=== PATIENT | male | born 1985 | race Caucasian/White ===

== ENCOUNTER 2018-03-03 20:49 | Emergency (ER) | payer OTHER ==
[~2018-03-03] VITALS: Ht 180.3 cm; Wt 151.8 kg
[~2018-03-03 20:49] MED LIST: AGM875 PO
[2018-03-03 21:07] VITALS: TEMP 36.8; Ht 180.3 cm; Wt 151.8 kg
--- NOTE | 2018-03-03 22:46 | DIAGNOSTIC IMAGING REPORT ---
L EXTREMITY NONVASCULAR LIMITED CLINICAL HISTORY: 32 years-old Male presenting with left calf pain/swelling, ? Muscle tear/DVT. TECHNIQUE: Real-time grayscale Doppler ultrasound imaging of the left medial calf was performed for a focused evaluation at the site of clinical concern. COMPARISON: None. FINDINGS: At the site of clinical interest in the left medial calf, normal subcutaneous fat and subjacent musculature. No focal fluid collection. No subcutaneous edema. No skin thickening. IMPRESSION: 1. No sonographic abnormality at the site of clinical interest in the left medial calf. Electronically signed by: Luis Abdul M.D. 03/03/2018 10:45 PM Dictated Date/Time: 03/03/2018 10:44 PM
--- NOTE | 2018-03-03 23:11 | DIAGNOSTIC IMAGING REPORT ---
L VENOUS DOPP LOWER EXT UNILAT CLINICAL HISTORY: 32 years-old Male presenting with left calf pain/swelling, ? muscle tear/DVT. TECHNIQUE: Real-time grayscale and color and spectral Doppler ultrasound imaging of the veins of the left lower extremity was performed. Compression and augmentation were also utilized. COMPARISON: None. FINDINGS: Left: Common femoral vein: Patent. Greater saphenous vein: Patent. Deep femoral vein: Patent. Femoral vein: Patent. Popliteal vein: Patent. Calf veins: Patent. Other: None. IMPRESSION: No evidence of deep venous thrombosis. Electronically signed by: uLis Abdul M.D. 03/03/2018 11:10 PM Dictated Date/Time: 03/03/2018 11:08 PM
[2018-03-03 23:42] VITALS: BP 113/81; PULSE 87; O2SAT 97
--- NOTE | 2018-03-04 03:59 | EMERGENCY ROOM VISIT NOTE ---
History First contact with patient: 21:49 Chief Complaint: LEG PAIN,LEG INJURY Stated Complaint: SOMETHING POP IN LEG History of Present Illness The patient is a 32 year old male who presents to the Emergency Room with complaints of right calf pain and swelling after he was helping to lift heavy equipment into the truck and heard a pop. Patient describes the pain as aching , ranging in severity 5 out of 10 worse with movement and better with rest. Patient denies fall, knee pain, anterior huynh pain, foot pain, ankle pain, numbness, tingling. No recent fluoroquinolones. No prior injury to this leg. Review of Systems An 10 system review of systems was completed with positives and pertinent negatives listed in the HPI. Past Medical/Surgical History GERD Social History Smoking Status: Never Smoker Smokeless Tobacco Use: No Alcohol Use: occasionally Drug Use: none Marital Status: Housing Status: lives with family Occupation Status: employed Current/Historical Medications Scheduled Amoxicillin/Clavulanate Potas (Augmentin *), 875 MG PO BID Miscellaneous Medications None (Patient States No Home Meds) Physical Exam Vital Signs Date Time Temp Pulse Resp B/P (MAP) Pulse Ox O2 Delivery O2 Flow Rate FiO2 03/03/18 23:42 87 16 113/81 97 03/03/18 21:07 36.8 110 18 144/91 95 Room Air Physical Exam VITALS: Vitals are noted on the nurse's note and reviewed by myself. Vital signs stable. GENERAL: Pleasant male, in no acute distress, nondiaphoretic, well-developed well-nourished. SKIN: Capillary reflex less than 2 seconds. HEENT: Normocephalic. PERRLA. EOMI. Nares patent. Mucous membranes moist. HEART: Regular rate and rhythm without murmurs gallops or rubs. LUNGS: Clear to auscultation bilaterally without wheezes, rales or rhonchi. No retractions or accessory muscle use. MUSCULOSKELETAL: No gross musculoskeletal defects. No pedal edema. Right calf tenderness. Right knee huynh ankle and foot nontender to palpation. Patient can plantarflex and dorsiflex but with pain. Negative Homans sign. Patient is tender over the calf without contusion or erythema present. No signs of compartment syndrome. NEURO: Patient was alert and oriented to person place and time. Normal sensation to light and sharp touch. No focal neurological deficits. Medical Decision & Procedures ED Course Prior records reviewed and summarized above. Triage Nursing notes reviewed. Additional history obtained from the family. The patient's history was concerning for swelling and pain in the leg. Differential diagnosis: Etiologies such as DVT, musculoskeletal, infection, joint effusion, trauma, lymphedema, idiopathic, Achilles injury, muscular tear, as well as others were entertained.. Physical examination: The physical examination revealed no signs of infection. Neurovascularly intact. ER treatment provided: Patient declined pain meds On reassessment the patient felt better. Diagnostics interpreted by me: Imaging studies: Ultrasound of the leg negative for DVT L EXTREMITY NONVASCULAR LIMITED CLINICAL HISTORY: 32 years-old Male presenting with left calf pain/swelling, ? Muscle tear/DVT. TECHNIQUE: Real-time grayscale Doppler ultrasound imaging of the left medial calf was performed for a focused evaluation at the site of clinical concern. COMPARISON: None. FINDINGS: At the site of clinical interest in the left medial calf, normal subcutaneous fat and subjacent musculature. No focal fluid collection. No subcutaneous edema. No skin thickening. IMPRESSION: 1. No sonographic abnormality at the site of clinical interest in the left medial calf. Electronically signed by: Luis Abdul M.D. This appears to be consistent with right calf injury most likely strain from over exertion. Patient was able to plantarflex and dorsiflex the foot. He was placed in crutches and instructed on the use. He had no blood clot. No signs of fluid collection or obvious injury on ultrasound. He was advised to take it easy for the week and if symptoms persist to follow-up with orthopedics or here in the ER sooner for severe pain, numbness, tingling, worsening signs or symptoms or as needed. He had no signs of compartment syndrome. He was well- appearing. By the evaluation outlined above emergent etiologies such as DVT, septic joint, trauma, infection, CHF, as well as others were deemed relatively unlikely. The pt informed about the findings as listed above. All questions were answered and pleased with the treatment. Return instructions were outlined and the patient was discharged in stable condition. Referral: The patient was referred back to their primary care physician and/or orthopedics for follow-up in 2 to 3 days for a recheck of the current condition. The chart was completed utilizing [employer] voice recognition software. Grammatical errors, random word insertions, pronoun errors, and incomplete sentences are an occassional consequence of this system due to software limitations, ambient noise, and hardware issues. Any formal questions or concerns about the content, text, or information contained within the body of this dictation should be directly addressed to the physician blacksmith assistant for clarification. Medical Decision As above Medication Reconcilliation Current Medication List: was personally reviewed by me Blood Pressure Screening Patient's blood pressure: Normal blood pressure Impression Primary Impression: Injury of calf Departure Information Dispostion Home / Self-Care Condition GOOD Referrals Luis Stanton M.D. Forms HOME CARE DOCUMENTATION FORM, Work Instructions, Return To Work: 5 days IMPORTANT VISIT INFORMATION Patient Instructions My [facility] Additional Instructions Ibuprofen(Motrin, Advil) may be used for fever or pain. Use 600mg every six hours as needed. Take with food. Avoid using more than 2400mg in a 24 hour period. Do not use 2400mg per day for more than three consecutive days without physician direction. Prolonged inappropriate use can lead to stomach upset or ulcers. This medication can be taken if you need to drive, work, or perform activities which may be dangerous when taking narcotic pain medication. (AND/OR) Acetaminophen(Tylenol) may be used for fever or pain. Use 1000mg every six hours as needed. Avoid using more than 3000mg in a 24 hour period. This medication can be taken if you need to drive, work, or perform activities which may be dangerous when taking narcotic pain medication. Ice compresses for 20 minutes at a time four times daily for 2-3 days. Use the crutches as instructed. Rest and elevate your injury. Continue current medications. Return to the ER immediately for any numbness, tingling, severe pain, extreme swelling in the extremity or as needed. Call Orthopedics tomorrow to arrange follow up for your injury. Work Instructions Return To Work: 5 days
== END 2018-03-03 23:42 | disposition home or self-care (01) ==
LOC: C.EDB 20:51 → C.EDD 23:42
DX: S89.91XA Unspecified injury of right lower leg, initial encounter (principal); X50.0XXA Overexertion from strenuous movement or load, initial encounter